=== PATIENT | male | born 1975 | race Caucasian/White ===

== ENCOUNTER 2017-10-06 18:32 | Emergency (ER) | payer OTHER ==
[~2017-10-06] VITALS: Ht 185.4 cm; Wt 105.0 kg
[~2017-10-06 18:32] MED LIST: CLOM25CA PO; DICY1TAB26 PO; LISI10TA PO; XANA0.5T PO
[2017-10-06 18:35] VITALS: BP 157/98; PULSE 95; RESP 16; TEMP 99.1; O2SAT 99
[2017-10-06] MEDS ORDERED: SODIUM CHLOR 0.9% 1000 ML INJ 1,000 ML IV ONE ×2 (18:58→19:00)
[2017-10-06] MEDS ORDERED: SODIUM CHLORIDE 0.9% FLUSH 10 ML FLUSH IVF PRN (19:00)
[2017-10-06 19:01] VITALS: BP 137/85; PULSE 100; RESP 18; O2SAT 99
[2017-10-06] MEDS ORDERED: VENTAER INH (19:01)
[2017-10-06] MEDS ORDERED: ALPR0.5T3 PO (19:01)
[2017-10-06] MEDS ORDERED: LISI20TA PO (19:01)
[2017-10-06] MEDS ORDERED: AMLO5TAB2 PO (19:01)
[2017-10-06] MEDS ORDERED: AZIT250T3 PO (19:01)
[2017-10-06 19:11] VITALS: BP_SYST 153; BP_SYST 165; BP_DIAS 56; BP_DIAS 93; RESP 18
--- NOTE | 2017-10-06 19:20 | PD ---
HPI Chief Complaint: Syncope/Near-Syncope Time Seen by Provider: 18:52 Travel History International Travel<30 days: No Contact w/Intl Traveler<30days: No Traveled to known affect area: No History of Present Illness HPI Patient is a 42 year old male with history of hypertension who presents to the ER after a syncopal episode. Denies smoking history. 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 Reports that he was recently diagnosed with bronchitis and has been having coughing fits. Reports that he was trying to get up from a chair during his coughing fit and ended up passing out onto the cement ground. He had a witnessed syncopal episode by his who reported that he was "out" for about 3- 5 min. Patient reports that he was able to come to fairly fast. Patient denies any chest pain or shortness of breath. He does have a frontal headache and abrasions to his forehead. Denies history of syncope in the past. Patient is currently not taking any anticoagulants. PFSH Past Medical History Anxiety: Yes Heart Rhythm Problems: No Cardiac Catheterization: No Cardiovascular Problems: No High Cholesterol: No Congestive Heart Failure: No Diabetes: No Diminished Hearing: No Hypertension: Yes Myocardial Infarction: No ?: Not Past Surgical History Coronary Artery Bypass Graft: No Tonsillectomy: Yes Social History Alcohol Use: Yes (OCC) Tobacco Use: No Substance Use: No Allergies-Medications (Allergen,Severity, Reaction): Coded Allergies: No Known Allergies (Verified Adverse Reaction, Unknown, 10/06/17) Reported Meds & Prescriptions Reported Meds & Active Scripts Active Promethazine-Codeine Liq 6.25-10 Mg/5 Ml Syrp 10 Ml PO Q6H PRN 7 Days Tessalon Perles (Benzonatate) 100 Mg Cap 200 Mg PO TID PRN Prednisone 20 Mg Tab 20 Mg PO BID 5 Days Reported Ventolin Hfa 18 GM Inh (Albuterol Sulfate) 90 Mcg/Act Aer 1 Puff INH Q4H PRN Azithromycin 250 Mg Tab 250 Mg PO DIRECTED Take 2 tabs (500 mg) on day 1 then 1 tab daily x 4 days. Amlodipine (Amlodipine Besylate) 5 Mg Tab 5 Mg PO DAILY Lisinopril-Hctz 20-12.5 Mg Tab 1 Tab PO DAILY Alprazolam 0.5 Mg Tab 0.5 Mg PO Q8H PRN Review of Systems General / Constitutional: No: Fever Eyes: No: Visual changes HENT: Positive: Headaches, Lightheadedness, Neck Pain Cardiovascular: No: Chest Pain or Discomfort, Palpitations Respiratory: Positive: Cough, No: Shortness of Breath, Wheezing Gastrointestinal: No: Abdominal Pain Genitourinary: No: Dysuria Musculoskeletal: No: Pain Skin: No Rash Neurologic: Positive: Syncope, Headache, No: Weakness Psychiatric: No: Depression Endocrine: No: Polydipsia Hematologic/Lymphatic: No: Easy Bruising Physical Exam Narrative GENERAL: mild distress SKIN: Focused skin assessment warm/dry. patient with abrasions to forehead HEAD: Atraumatic. Normocephalic. EYES: Pupils equal and round. No scleral icterus. No injection or drainage. ENT: No nasal bleeding or discharge. Mucous membranes pink and moist. NECK: Trachea midline. No JVD. CARDIOVASCULAR: Regular rate and rhythm. No murmur appreciated. RESPIRATORY: No accessory muscle use. Clear to auscultation. Breath sounds equal bilaterally. GASTROINTESTINAL: Abdomen soft, non-tender, nondistended. Hepatic and splenic margins not palpable. MUSCULOSKELETAL: No obvious deformities. No clubbing. No cyanosis. No edema. NEUROLOGICAL: Awake and alert. No obvious cranial nerve deficits. Motor grossly within normal limits. Normal speech. CN 2-12 grossly intact with no neurological deficits PSYCHIATRIC: Appropriate mood and affect; insight and judgment normal. Data Data Last Documented VS Vital Signs Date Time Temp Pulse Resp B/P (MAP) Pulse Ox O2 Delivery O2 Flow Rate FiO2 10/06/17 19:11 89 18 153/93 (113) 90 18 165/56 (92) 10/06/17 19:01 Room Air 10/06/17 19:01 99 10/06/17 18:35 99.1 Orders Orders Electrocardiogram (10/06/17 18:58) Complete Blood Count With Diff (10/06/17 18:58) Comprehensive Metabolic Panel (10/06/17 18:58) Magnesium (Mg) (10/06/17 18:58) Ckmb (Isoenzyme) Profile (10/06/17 18:58) Troponin I (10/06/17 18:58) Act Partial Throm Time (Ptt) (10/06/17 18:58) Prothrombin Time / Inr (Pt) (10/06/17 18:58) Urinalysis - C+S If Indicated (10/06/17 18:58) Chest, Single Ap (10/06/17 18:58) Ct Brain W/O Iv Contrast(Rout) (10/06/17 18:58) Ct Cerv Spine W/O Contrast (10/06/17 18:58) Ecg Monitoring (10/06/17 18:58) Iv Access Insert/Monitor (10/06/17 18:58) Oximetry (10/06/17 18:58) Sodium Chloride 0.9% Flush (Ns Flush) (10/06/17 19:00) Sodium Chlor 0.9% 1000 Ml Inj (Ns 1000 M (10/06/17 18:58) Orthostatic Vital Signs (10/06/17 18:58) Sodium Chlor 0.9% 1000 Ml Inj (Ns 1000 M (10/06/17 19:00) CKMB (10/06/17 19:24) CKMB% (10/06/17 19:24) Prednisone (Deltasone) (10/06/17 20:45) Ed Discharge Order (10/06/17 20:46) Labs Laboratory Tests Test 10/06/17 19:24 10/06/17 19:26 White Blood Count 9.9 TH/MM3 Red Blood Count 4.85 MIL/MM3 Hemoglobin 15.1 GM/DL Hematocrit 43.0 % Mean Corpuscular Volume 88.8 FL Mean Corpuscular Hemoglobin 31.3 PG Mean Corpuscular Hemoglobin Concent 35.2 % Red Cell Distribution Width 12.3 % Platelet Count 373 TH/MM3 Mean Platelet Volume 6.9 FL Neutrophils (%) (Auto) 62.9 % Lymphocytes (%) (Auto) 25.7 % Monocytes (%) (Auto) 7.5 % Eosinophils (%) (Auto) 2.9 % Basophils (%) (Auto) 1.0 % Neutrophils # (Auto) 6.2 TH/MM3 Lymphocytes # (Auto) 2.6 TH/MM3 Monocytes # (Auto) 0.7 TH/MM3 Eosinophils # (Auto) 0.3 TH/MM3 Basophils # (Auto) 0.1 TH/MM3 CBC Comment DIFF FINAL Differential Comment Prothrombin Time 10.7 SEC Prothromb Time International Ratio 1.1 RATIO Activated Partial Thromboplast Time 26.3 SEC Blood Urea Nitrogen 8 MG/DL Creatinine 0.84 MG/DL Random Glucose 92 MG/DL Total Protein 8.2 GM/DL Albumin 3.9 GM/DL Calcium Level 8.2 MG/DL Magnesium Level 2.1 MG/DL Alkaline Phosphatase 58 U/L Aspartate Amino Transf (AST/SGOT) 39 U/L Alanine Aminotransferase (ALT/SGPT) 65 U/L Total Bilirubin 0.6 MG/DL Sodium Level 135 MEQ/L Potassium Level 3.6 MEQ/L Chloride Level 102 MEQ/L Carbon Dioxide Level 25.4 MEQ/L Anion Gap 8 MEQ/L Estimat Glomerular Filtration Rate 99 ML/MIN Total Creatine Kinase 332 U/L Creatine Kinase MB 1.7 NG/ML Creatine Kinase MB % 0.5 % Troponin I LESS THAN 0.02 NG/ML Urine Color YELLOW Urine Turbidity CLEAR Urine pH 6.0 Urine Specific Pratt LESS/EQUAL 1.005 Urine Protein NEG mg/dL Urine Glucose (UA) NEG mg/dL Urine Ketones NEG mg/dL Urine Occult Blood NEG Urine Nitrite NEG Urine Bilirubin NEG Urine Urobilinogen 0.2 MG/DL Urine Leukocyte Esterase NEG Urine WBC 0-2 /hpf Urine Squamous Epithelial Cells 0-5 /hpf Microscopic Urinalysis Comment CULT NOT INDICATED MDM Medical Decision Making Medical Screen Exam Complete: Yes Emergency Medical Condition: Yes Medical Record Reviewed: Yes Interpretation(s) EKG at 1914: NSR at 85bpm, qt/qtc: 361/403, no acute changes Vital Signs Date Time Temp Pulse Resp B/P (MAP) Pulse Ox O2 Delivery O2 Flow Rate FiO2 10/06/17 19:01 Room Air 10/06/17 19:01 100 18 137/85 (102) 99 Room Air 10/06/17 18:35 99.1 95 16 157/98 (117) 99 Differential Diagnosis vasovagal syncope, ACS, arrhythmia, orthostatic hypotension, electrolyte abnormality Narrative Course Patient is a 42-year-old male who presents the emergency room for evaluation of syncopal episode which occurred prior to arrival to the emergency room. Patient reports that he was going from a sitting to standing position while having a coughing fit, reports that he had a syncopal episode during this and ended up falling onto the ground hitting his head of the cement ground prior to coming to the ER. Patient with no histories of syncope in the past, patient with only history of hypertension. He did admit to drinking 2 beers a day, reports that he has been hydrating and drinks about 5 glasses of work today. Patient with headache, neck pain, no chest pain or shortness breath at this time. Patient with a normal neurological exam. Discussed with patient that symptoms are most likely vasovagal in nature. CT of the head, neck as well as lab work was ordered During the course of the patients emergency department visit, the patients history, examination, and differential diagnosis were reviewed with the patient. The patient was placed on a personnel monitor with oximetry and frequent blood pressure monitoring. The patient had an IV access obtained and blood work sent for analysis. The patient was initially provided IV fluids.. The patients laboratory studies were reviewed and remarkable for Laboratory Tests Test 10/06/17 19:24 10/06/17 19:26 White Blood Count 9.9 TH/MM3 (4.0-11.0) Red Blood Count 4.85 MIL/MM3 (4.50-5.90) Hemoglobin 15.1 GM/DL (13.0-17.0) Hematocrit 43.0 % (39.0-51.0) Mean Corpuscular Volume 88.8 FL (80.0-100.0) Mean Corpuscular Hemoglobin 31.3 PG (27.0-34.0) Mean Corpuscular Hemoglobin Concent 35.2 % (32.0-36.0) Red Cell Distribution Width 12.3 % (11.6-17.2) Platelet Count 373 TH/MM3 (150-450) Mean Platelet Volume 6.9 FL (7.0-11.0) Neutrophils (%) (Auto) 62.9 % (16.0-70.0) Lymphocytes (%) (Auto) 25.7 % (9.0-44.0) Monocytes (%) (Auto) 7.5 % (0.0-8.0) Eosinophils (%) (Auto) 2.9 % (0.0-4.0) Basophils (%) (Auto) 1.0 % (0.0-2.0) Neutrophils # (Auto) 6.2 TH/MM3 (1.8-7.7) Lymphocytes # (Auto) 2.6 TH/MM3 (1.0-4.8) Monocytes # (Auto) 0.7 TH/MM3 (0-0.9) Eosinophils # (Auto) 0.3 TH/MM3 (0-0.4) Basophils # (Auto) 0.1 TH/MM3 (0-0.2) CBC Comment DIFF FINAL Differential Comment Prothrombin Time 10.7 SEC (9.8-11.6) Prothromb Time International Ratio 1.1 RATIO Activated Partial Thromboplast Time 26.3 SEC (24.3-30.1) Blood Urea Nitrogen 8 MG/DL (7-18) Creatinine 0.84 MG/DL (0.60-1.30) Random Glucose 92 MG/DL (74-106) Total Protein 8.2 GM/DL (6.4-8.2) Albumin 3.9 GM/DL (3.4-5.0) Calcium Level 8.2 MG/DL (8.5-10.1) Magnesium Level 2.1 MG/DL (1.5-2.5) Alkaline Phosphatase 58 U/L (45-117) Aspartate Amino Transf (AST/SGOT) 39 U/L (15-37) Alanine Aminotransferase (ALT/SGPT) 65 U/L (12-78) Total Bilirubin 0.6 MG/DL (0.2-1.0) Sodium Level 135 MEQ/L (136-145) Potassium Level 3.6 MEQ/L (3.5-5.1) Chloride Level 102 MEQ/L (98-107) Carbon Dioxide Level 25.4 MEQ/L (21.0-32.0) Anion Gap 8 MEQ/L (5-15) Estimat Glomerular Filtration Rate 99 ML/MIN (>89) Total Creatine Kinase 332 U/L (39-308) Creatine Kinase MB 1.7 NG/ML (0.5-3.6) Creatine Kinase MB % 0.5 % (0.0-4.0) Troponin I LESS THAN 0.02 NG/ML Urine Color YELLOW (YELLW/STRAW) Urine Turbidity CLEAR (CLEAR) Urine pH 6.0 (5.0-8.5) Urine Specific Pratt LESS/EQUAL 1.005 Urine Protein NEG mg/dL (NEG-TRACE) Urine Glucose (UA) NEG mg/dL (NEG) Urine Ketones NEG mg/dL (NEG) Urine Occult Blood NEG (NEG) Urine Nitrite NEG (NEG) Urine Bilirubin NEG (NEG) Urine Urobilinogen 0.2 MG/DL (LESS THAN Urine Leukocyte Esterase NEG (NEG) Urine WBC 0-2 /hpf (0-5) Urine Squamous Epithelial Cells 0-5 /hpf (0-5) Microscopic Urinalysis Comment CULT NOT INDICATED Radiology studies were reviewed and remarkable for Last Impressions Head CT 10/06/171857 Signed Impressions: Service Date/Time: Friday, October 06, 2017 19:23 - CONCLUSION: Normal examination. Silvestre Tejada MD Chest X-Ray 10/06/171857 Signed Impressions: Service Date/Time: Friday, October 06, 2017 19:32 - CONCLUSION: No acute disease. Silvestre Tejada MD Cervical Spine CT 10/06/171857 Signed Impressions: Service Date/Time: Friday, October 06, 2017 19:23 - CONCLUSION: No fracture or subluxation. Silvestre Tejada MD Patient reevaluated, patient feeling much better at this time. I do believe that patients syncope was vasovagal in nature and I did review this with the patient in detail. Patient is in agreement and will get up slowly the next time he tries to stand from a sitting position. Patient is having coughing fits at bedside; he request medication for his cough as when he starts coughing, he can't stop for some time. he has already been on a zpack course and does have an albuterol hfa at home. patient will be given a script for steroids as well as for cough medications. Signs and symptoms of when to return to the ER was reviewed with patient in detail. Diagnosis Primary Impression: Syncope, vasovagal Additional Impression: Bronchitis Patient Instructions: General Instructions Additional Instructions: Please provide patient with a copy of their lab work and studies at discharge* * Please follow up with your primary care doctor in 2-3 days Return to the ER if symptoms worsen or progress Return to the ER as needed Please drink plenty of fluids Med/Other Pt SpecificInfo: Prescription(s) given Scripts Promethazine-Codeine Liq (Promethazine-Codeine Liq) 6.25-10 Mg/5 Ml Syrp 10 ML PO Q6H Y for COUGH AND/OR COLD SYMPTOMS for 7 Days, #280 ML 0 Refills Prov: Patricia Strauss DO 10/06/17 Benzonatate (Tessalon Perles) 100 Mg Cap 200 MG PO TID Y for COUGH, #30 CAP 0 Refills Prov: Patricia Strauss DO 10/06/17 Prednisone (Prednisone) 20 Mg Tab 20 MG PO BID for 5 Days, #10 TAB 0 Refills Prov: Patricia Strauss DO 10/06/17 Disposition: 01 DISCHARGE HOME Condition: Stable Patricia Strauss DO Oct 06, 2017 19:20
[2017-10-06 19:32] LABS: BILIRUBIN, URINE NEG (NEG); BLOOD, URINE NEG (NEG); GLUCOSE,URINE NEG (NEG); KETONE, URINE NEG (NEG); NITRITE,URINE NEG (NEG); URINE COLOR YELLOW (YELLW/STRAW); URINE LEUKOCYTE ESTERASE NEG (NEG)
[2017-10-06 19:34] LABS: AUTOMATED NEUTROPHIL # 6.2 TH/MM3 (1.8-7.7); BASOPHIL # 0.1 TH/MM3 (0-0.2); EOSINOPHIL # 0.3 TH/MM3 (0-0.4); EOSINOPHIL % 2.9 % (0.0-4.0); HEMOGLOBIN 15.1 GM/DL (13.0-17.0); LYMPH % 25.7 % (9.0-44.0); LYMPHOCYTE # 2.6 TH/MM3 (1.0-4.8); MEAN CELL VOLUME 88.8 FL (80.0-100.0); MEAN CORPUSCULAR HEMOGLOBIN 31.3 PG (27.0-34.0); MEAN CORPUSCULAR HGB CONC 35.2 % (32.0-36.0); MEAN PLATELET VOLUME 6.9 FL (7.0-11.0); MONO % 7.5 % (0.0-8.0); MONOCYTE # 0.7 TH/MM3 (0-0.9); NEUT % 62.9 % (16.0-70.0); PLATELET COUNT 373 TH/MM3 (150-450); RED BLOOD COUNT 4.85 MIL/MM3 (4.50-5.90); RED CELL DISTRIBUTION WIDTH 12.3 % (11.6-17.2); WHITE BLOOD COUNT 9.9 TH/MM3 (4.0-11.0)
--- NOTE | 2017-10-06 19:40 | RADRPT ---
EXAM DATE/TIME: 10/06/2017 19:23 [facility] COMPARISON: No previous studies available for comparison. INDICATIONS : Syncopal episode, hit forehead RADIATION DOSE: 60.45 CTDIvol (mGy) MEDICAL HISTORY : None SURGICAL HISTORY : None. ENCOUNTER: Initial ACUITY: 1 day PAIN SCALE: 3/10 LOCATION: frontal TECHNIQUE: Multiple contiguous axial images were obtained of the head. Using automated exposure control and adj ustment of the mA and/or kV according to patient size, radiation dose was kept as low as reasonably a chievable to obtain optimal diagnostic quality images. DICOM format image data is available electro nically for review and comparison. FINDINGS: CEREBRUM: The ventricles are normal for age. No evidence of midline shift, mass lesion, hemorrhage or acute in farction. No extra-axial fluid collections are seen. POSTERIOR FOSSA: The cerebellum and brainstem are intact. The 4th ventricle is midline. The cerebellopontine angle i s unremarkable. EXTRACRANIAL: The visualized portion of the orbits is intact. SKULL: The calvaria is intact. No evidence of skull fracture. CONCLUSION: Normal examination. Silvestre Tejada MD on October 06, 2017 at 19:37 Board Certified Radiologist. This report was verified electronically.
[2017-10-06 19:42] LABS: SQUAMOUS EPITHELIAL CELL URINE 0-5 /hpf (0-5); WBC, URINE 0-2 /hpf (0-5)
[2017-10-06 19:44] LABS: CHLORIDE 102 MEQ/L (98-107); SODIUM (NA) 135 MEQ/L (136-145)
--- NOTE | 2017-10-06 19:45 | RADRPT ---
EXAM DATE/TIME: 10/06/2017 19:32 [facility] COMPARISON: No previous studies available for comparison. INDICATIONS : Syncope. MEDICAL HISTORY : Hypertension. SURGICAL HISTORY : None. ENCOUNTER: Initial ACUITY: 1 day PAIN SCORE: 0/10 LOCATION: Bilateral chest FINDINGS: A single view of the chest demonstrates the lungs to be symmetrically aerated without evidence of mas s, infiltrate or effusion. The cardiomediastinal contours are unremarkable. Osseous structures are intact. CONCLUSION: No acute disease. Silvestre Tejada MD on October 06, 2017 at 19:43 Board Certified Radiologist. This report was verified electronically.
--- NOTE | 2017-10-06 19:46 | RADRPT ---
EXAM DATE/TIME: 10/06/2017 19:23 [facility] COMPARISON: No previous studies available for comparison. INDICATIONS : Syncopal episode, hit head RADIATION DOSE: 26.56 CTDIvol (mGy) MEDICAL HISTORY : None SURGICAL HISTORY : None. ENCOUNTER: Initial ACUITY: 1 day PAIN SCALE: 1/10 LOCATION: neck TECHNIQUE: Volumetric scanning of the cervical spine was performed. Multiplanar reconstructions in the sagittal, coronal and oblique axial planes were performed. Using automated exposure control and adjustment o f the mA and/or kV according to patient size, radiation dose was kept as low as reasonably achievable to obtain optimal diagnostic quality images. DICOM format image data is available electronically f or review and comparison. FINDINGS: VERTEBRAE: Normal vertebral body height. ALIGNMENT: No evidence of subluxation. C2-C3: The bony spinal canal is normal in size. No evidence of disc bulge or herniation. The neural forami na are bilaterally patent. C3-C4: The bony spinal canal is normal in size. No evidence of disc bulge or herniation. The neural forami na are bilaterally patent. C4-C5: The bony spinal canal is normal in size. No evidence of disc bulge or herniation. The neural forami na are bilaterally patent. C5-C6: A right-sided posterior osteophyte complex without canal stenosis. The neural foramina are bilateral ly patent. C6-C7: The bony spinal canal is normal in size. No evidence of disc bulge or herniation. The neural forami na are bilaterally patent. C7-T1: The bony spinal canal is normal in size. No evidence of disc bulge or herniation. The neural forami na are bilaterally patent. CONCLUSION: No fracture or subluxation. Silvestre Tejada MD on October 06, 2017 at 19:43 Board Certified Radiologist. This report was verified electronically.
[2017-10-06 19:48] LABS: ALBUMIN 3.9 GM/DL (3.4-5.0); BICARBONATE 25.4 MEQ/L (21.0-32.0); BLOOD UREA NITROGEN 8 MG/DL (7-18); CALCIUM 8.2 MG/DL (8.5-10.1); GLUCOSE,RANDOM 92 MG/DL (74-106); MAGNESIUM 2.1 MG/DL (1.5-2.5)
[2017-10-06 19:49] LABS: INTERNATIONAL NORMALIZED RATIO 1.1 RATIO; PROTHROMBIN TIME - PATIENT 10.7 SEC (9.8-11.6)
[2017-10-06 19:51] LABS: ALT (GPT) 65 U/L (12-78); AST (GOT) 39 U/L (15-37); CREATININE 0.84 MG/DL (0.60-1.30); GLOMERULAR FILTRATION RATE 99 ML/MIN (>89)
[2017-10-06 19:53] LABS: TOTAL BILIRUBIN ADULT 0.6 MG/DL (0.2-1.0); TOTAL PROTEIN 8.2 GM/DL (6.4-8.2)
[2017-10-06 19:54] LABS: ALKALINE PHOSPHATASE 58 U/L (45-117)
[2017-10-06 19:56] LABS: TROPONIN I LESS THAN 0.02 NG/ML (0.02-0.05)
[2017-10-06] MEDS ORDERED: PROM6.256 PO (20:37)
[2017-10-06] MEDS ORDERED: PRED20 PO (20:37)
[2017-10-06] MEDS ORDERED: BENZ100 PO (20:37)
[2017-10-06] MEDS ORDERED: predniSONE 20 MG TAB PO ONE (20:45)
[2017-10-06 20:58] VITALS: BP 135/85
--- NOTE | 2017-10-07 00:08 | EKG ---
Date Performed: 10/06/2017 Time Performed: 19:14:24 PTAGE: 42 years EKG: Sinus rhythm WITH SHORT ME INTERVAL NONSPECIFIC T-WAVE ABNORMALITY BORDERLINE ECG PREVIOUS TRACING : 09/19/2007 00.08 Compared to previous tracing, non-specific ST/T wave maldonado es now noted DOCTOR: Bang Santos Interpretating Date/Time 10/07/2017 00:06:28
== END 2017-10-06 21:13 | disposition home or self-care (01) ==
LOC: PHED 18:32
DX: R55 Syncope and collapse (principal); J40 Bronchitis, not specified as acute or chronic; R94.31 Abnormal electrocardiogram [ECG] [EKG]; S00.81XA Abrasion of other part of head, initial encounter; W19.XXXA Unspecified fall, initial encounter; I10 Essential (primary) hypertension; F41.9 Anxiety disorder, unspecified
CPT/HCPCS: 70450; 71045; 72125; 80053; 81001; 82550; 82552; 83735; 84484; 85025; 85610; 85730; 93005; 96360; 96361; 99285; J7030; J7512